=== PATIENT | male | born 1960 | race Caucasian/White ===

== ENCOUNTER → 2025-08-19 10:15 | Outpatient (BNVA) | payer MEDICARE, OTHER, SELFPAY | PROVIDERS: Visit Provider Orthopaedic Surgery | DX: M19.012 Primary osteoarthritis, left shoulder (principal) | CPT/HCPCS: 99204 ==

== ENCOUNTER 2025-08-26 11:51 | Day surgery (SDC) | payer MEDICARE, OTHER, SELFPAY ==
[2025-08-26] VITALS (14 sets, daily range): BP systolic 108–150; BP diastolic 63–85; PULSE 64–80; RESP 14–23; TEMP 36.1–36.7; O2SAT 95–98; BMI 33.7
--- NOTE | 2025-08-26 13:27 | W.PM.OPSUD ---
Surgery/Procedure H&P Update DATE OF PROCEDURE: August 26, 2025 DATE H&P PERFORMED: 08/22/25 H&P UPDATE INFORMATION: I have reviewed H&P completed within last 30 days, I have examined patient prior to procedure and No changes to prior documentation PLANNED PROCEDURE: Operation Date: 08/26/25 13:40 Proposed Procedures p Left bicep tenodesis(Left) - Theo Emery MD
--- NOTE | 2025-08-26 13:39 | SUR.PREOP ---
13:25 LEFT INTRASCALENE NERVE BLOCK PERFORMED BY DOCTOR RIVERA, USING 30ml OF 0.5% ROPIVACAINE AND DECADRON 4mg. PT ON CORNER BEAD OPERATOR SHOWING NSR AND O2 VIA NASAL CANNULA. TOLERATED PROCEDURE WELL.
--- NOTE | 2025-08-26 13:48 | ANES.PROC ---
Anesthesia Procedures Procedure/Date: 08/26/25 Left interscalene nerve block for postoperative pain control Nerve Block ^: Nerve Block 1: Main Anesthesia: other (100mcg fentanyl) Time Out Performed: Yes Consent: requested by attending/covering physician Laterality: Left Nerve block location: interscalene Anesthesia monitors applied: pulse oximetry, EKG, BP cuff and oxygen Nerve block position: supine Anesthetic Used: ropivicaine 0.5% Amount of anesthesia used (mL): 30 Ultrasound used to: recognize landmarks Nerve Stimulator Used?: Yes Interscalene/Femoral BLK: other needle (pjunk 4inch) Injection: neg aspiration of heme Patient Tolerated Procedure: well Complications: none Additional Comments: decadron 4mg added to block
--- NOTE | 2025-08-26 13:50 | ANES.PREANE2 ---
Pre-Anesthetic Assessment Height/Weight: Height 5 ft 10 in Weight 235 lb Temp Pulse Resp BP Pulse Ox O2 Del Method O2 Flow Rate 98.0 F 64 14 150/85 98 Nasal Cannula 2 08/26/25 12:30 08/26/25 13:45 08/26/25 13:45 08/26/25 13:45 08/26/25 13:45 08/26/25 13:45 08/26/25 13:45 Preop Diagnosis: Left shoulder pain Operation Date: 08/26/25 13:40 Proposed Procedures p Left bicep tenodesis(Left) - Theo Emery MD Was Beta Lindsay taken within 24 hours: N/A Was Clonidine taken within 24 hours: N/A Last intake: Intake Last Liquid Date 08/26/25 Last Liquid Time 07:00 Last Solid Date 08/25/25 Last Solid Time 21:00 Social No alcohol and No tobacco Exam alert, oriented x 3, clear to auscultation bilaterally and regular rate & rhythm Airway Submandibular: within normal limits Cervical ROM: within normal limits Mallampati: Class III Comments: Comments: Upper plate Anesthetic Plan ASA status: 2 Other: No prior issues with anesthesia NPO since yesterday evening Chronic A-fib on chronic apixaban. Last taken 08/20/2025 Denies hypertension, preop BP 150/85 Denies any pulmonary issues METs greater than 4 Plan for general anesthesia with preop nerve block Medications/Allergies Home Medications ?Medication ?Instructions ?Recorded ?Confirmed ?Last Taken ?Type apixaban 5 mg tablet (Eliquis) 5 mg PO BID 08/19/25 08/22/25 08/20/25 History meloxicam 7.5 mg tablet 7.5 mg PO DAILY 08/22/25 08/22/25 08/15/25 History simvastatin 40 mg tablet 20 mg PO DAILY 08/22/25 08/22/25 08/20/25 History Allergies Allergy/AdvReac Type Severity Reaction Status Date / Time No Known Allergies Allergy Unverified 08/19/25 10:41 Current Medications Generic Name Dose Route Start Last Admin Trade Name Freq PRN Reason Stop Dose Admin Sodium Chloride 1,000 mls @ 30 mls/hr 08/26/25 12:30 08/26/25 13:03 Sodium Chloride 0.9% IV 08/27/25 12:29 30 mls/hr .Q24H KALEB Administration PFSH Anesthesia Social History Smoking and tobacco/nicotine status: current every day tobacco/nicotine user
--- NOTE | 2025-08-26 17:03 | P.OP_ITS ---
Operative Report Date of procedure: August 26, 2025 Surgeon: Theo Emery MD Procedure: Preoperative diagnosis: Internal derangement of the left shoulder with torn proximal biceps tendon Postoperative diagnosis: Anterior labral tear, rotator cuff tear, impingement of the acromion, ruptured biceps tendon approximately Procedure: Diagnostic left shoulder arthroscopy with debridement of anterior labrum and biceps stump. Anterior labral repair, open acromioplasty, rotator cuff repair, biceps tenodesis. Surgeon: Theo Emery MD Anesthesia: General With preoperative scalene block Insertion of the supraspinatus tendon at the level of the freshened tear of the rotator cuff. This too is double-armed. Was on the mattress sutures were used to bring the rotator cuff back down in the position. Portions of the suture we re then used in [id number] fashion to repair the remainder of the tear and incision line on the rotator cuff. Once adequate repair had been achieved the areas washed closed in a sterile irrigation. 0 Vicryl [id number] sutures were used to repair the deltoid back to the acromion. 2-0 Vicryl interrupted sutures used to reapproximate subcutaneous tissues and skin was closed with skin lu. Wounds are clean and dry dressed with Xeroform gauze sterile gauze dressing ABDs and adhesive tape. Patient was placed in abduction pillow sling awakened and transferred to cover room in stable condition EBL: 50 cc Indications: Ananya is a 65-year-old white male who was seen in my orthopedic clinic for debilitating pain within his left shoulder. He stated just 1 week before he was lifting something and felt a pop or snap in his shoulder and anterior shoulder pain. He presented without having that a Jorge deformity of his biceps but palpating along the bicipital groove is very tender to palpation in the area and bicep strength was diminished significantly. Drop arm test was positive also at that time and was very painful for the patient. Impingement testing was positive. MRI demonstrated he did have a ruptured biceps tendon as well as a partial tear of rotator cuff partial tear of the labrum anteriorly and therefore was offered a diagnostic shoulder arthroscopy with all indicated procedures. I went a lengthy discussion about fixing his proximal biceps tendon whether we let it fly and just heal where was that he would possibly get approximately 85% of his posterior and back since this was his nondominant arm or we could try and ensure better strength by anchoring it to the proximal humerus. He elected to have surgery and repair of the biceps tendon. All risk benefits treatment alternatives discussed he was agreeable to these. Procedure: After obtaining consent patient had preoperative scalene block administered in preop holding and then he was taken to the operating room. Patient placed on the operative table supine position general anesthetic administered. Once [place] was achieved patient was secured to the table and placed up into beachchair position. Left shoulder and arm were prepped and draped usual fashion. After surgical timeout standard posterior portals made #11 blade and camera cast placed within the glenohumeral joint line posteriorly. Evaluation of the joint demonstrated hypertrophic synovium and inflammation throughout the shoulder. Ruptured biceps tendon was identified with a small stump off the anterior superior aspect of the labrum. Anterior labrum between the 10 and 8 o'clock position was pulled away from the glenoid. This is debrided down to a stable base through an anterior portal was also placed at this point just inferior to the clavicle. Further evaluation found the biceps tendon in the biceps hiatus. There is also tearing of the rotator cuff in this area also. At this point arthroscopic repair of the labrum was done using 1.4 mm juggernaut suture anchors. 2 of these were placed with good repair achieved. At this point arthroscopy was abandoned. Longitudinal incision made off the anterior aspect the acromion sharp dissected gone down to subcutaneous tissue electrocautery used hemostasis. Electrocautery was then used to remove the deltoid from the anterior acromion. Once identified there is a large spur off the anterior lateral aspect of the acromion. Using a small microsagittal saw acromioplasty was undertaken and removed. There is good decompression of the rotator cuff and acromion at this point. Portion of the bursa was sharply debrided. Evaluation of the shoulder demonstrated a small tear in the rotator cuff was freshened with #15 blade. This 15 blade was also used to open up longitudinally the bicipital groove until the proximal portion of the biceps tendon could be identified. This was grasped with Allis clamps and pulled on up at maximum length. At this point drill holes were placed for 2.9 juggernaut suture anchors in the bicipital groove each of these double-armed and horizontal mattress sutures were used to suture the biceps tendon back down to the bicipital groove at maximum tension. This totaled 4 sets of sutures tying this down. The upper sutures were then used to repair the soft tissues back over the bicipital groove also in a horizontal mattress fashion. Another anchor was then placed up around the tear of the supraspinatus tendon. This also was a double- armed 2.9 mm juggernaut suture anchor. Horizontal mattress sutures used to repair the rotator cuff back down to the humeral head. Subsequently using the same suture [id number] sutures were used to supplement this until all soft tissue was reapproximated. Shoulder was then washed copious nonsterile irrigation. Deltoid reapproximated 0 Vicryl [id number] sutures. Subcutaneous tissue reapproximated 2-0 Vicryl interrupted sutures. And skin was closed with skin lu. Wounds were cleaned and dry dressed with Xeroform gauze sterile gauze dressing ABDs and adhesive tape. Patient was placed in abduction pillow and sling and transferred to the recovery [facility]
== END 2025-08-26 18:20 | disposition home or self-care (01) ==
PROVIDERS: PCP Family Medicine; Visit Provider Orthopaedic Surgery
PROC: (CPT 23430; principal; 2025-08-26 13:30)
PROC: (CPT 23130; 2025-08-26 13:30)
PROC: (CPT 23410; 2025-08-26 13:30)
PROC: (CPT 23130; 2025-08-26 13:30)
DX: M24.9 Joint derangement, unspecified (principal); S46.212A Strain of muscle, fascia and tendon of other parts of biceps, left arm, initial encounter; S43.432A Superior glenoid labrum lesion of left shoulder, initial encounter; X58.XXXD Exposure to other specified factors, subsequent encounter; I48.91 Unspecified atrial fibrillation; I10 Essential (primary) hypertension; F17.200 Nicotine dependence, unspecified, uncomplicated
CPT/HCPCS: 23410; 23130; 64415; C1713; J1100; J2405; J2704; J3010; J3490; J7030; J9999

== ENCOUNTER → 2025-09-06 10:34 | Outpatient (BNVA) | payer MEDICARE, OTHER, SELFPAY | PROVIDERS: PCP Family Medicine; Visit Provider Orthopaedic Surgery | DX: Z98.890 Other specified postprocedural states (principal) | CPT/HCPCS: 99024 ==